=== PATIENT | male | born 1935 | race Caucasian/White ===

== ENCOUNTER 2017-01-22 01:06 | Emergency (ER) | payer MEDICARE ==
[~2017-01-22] VITALS: Ht 182.9 cm; Wt 74.8 kg
[~2017-01-22 01:06] MED LIST: ASPI81TA7 PO; NEUR600T PO; OMEP20CA3 PO; PERC5TAB6 PO; SENO8.6T10 PO; SIMV20TA2 PO; TYLE325T5 PO; VITA10002 PO; VITA400T2 PO
[2017-01-22] MEDS ORDERED: DOXY100C PO (01:31)
[2017-01-22] MEDS ORDERED: MORPHINE 2 MG/ML 1ML SYRINGE IV ONE ×2 (02:00→03:00)
[2017-01-22] MEDS ORDERED: NS 1,000 ML IV ONE (02:00)
[2017-01-22] MEDS ORDERED: ONDANSETRON 4MG/2ML VIAL (J2405) IV ONE (02:00)
[2017-01-22 02:19] LABS: BASO % 0.9 % (0.0-1.0); EOS # 0.2 K/mm3 (0.0-0.50); EOS % 3.3 % (0.0-3.0); LARGE UNSTAINED CELL # 0.1 K/mm3 (0.0-0.4); LARGE UNSTAINED CELL % 1.4 % (0.0-4.0); LYMPH # 1.4 K/mm3 (1.5-4.5); LYMPH % 22.6 % (24.0-44.0); MEAN CORPUSCULAR HEMOGLOBIN 29.3 pg (27.0-33.0); MEAN CORPUSCULAR HGB CONC 32.7 g/dl (32.0-36.5); MEAN CORPUSCULAR VOLUME 89.5 fl (80.0-96.0); MONO # 0.3 K/mm3 (0.0-0.8); MONO % 5.2 % (0.0-5.0); NEUTROPHILS # 3.8 K/mm3 (1.8-7.7); NEUTROPHILS % 66.7 % (36.0-66.0); PLATELET COUNT, AUTOMATED 196 k/mm3 (150-450); WHITE BLOOD COUNT 5.8 K/mm3 (4.0-10.0)
[2017-01-22 02:39] LABS: ALBUMIN 3.5 GM/DL (3.2-5.2); ALBUMIN/GLOBULIN RATIO 1.17 (1.00-1.93); ALKALINE PHOSPHATASE 67 U/L (45-117); ALT/SGPT 27 U/L (12-78); ANION GAP 8 MEQ/L (8-16); AST/SGOT 21 U/L (15-37); BILIRUBIN,DIRECT 0.1 MG/DL (0.0-0.2); BILIRUBIN,TOTAL 0.4 MG/DL (0.2-1.0); BLOOD UREA NITROGEN 16 MG/DL (7-18); CALCIUM LEVEL 8.7 MG/DL (8.8-10.2); CARBON DIOXIDE LEVEL 26 MEQ/L (21-32); CHLORIDE LEVEL 106 MEQ/L (98-107); CREATININE FOR GFR 1.18 MG/DL (0.70-1.30); GLOMERULAR FILTRATION RATE > 60.0 (>42); GLUCOSE, FASTING 100 MG/DL (83-110); SODIUM LEVEL 140 MEQ/L (136-145); TOTAL PROTEIN 6.5 GM/DL (6.4-8.2)
[2017-01-22] MEDS ORDERED: ISOVUE-370 76% 100ML VIAL (Q9967) As Ordered ONE (02:56)
--- NOTE | 2017-01-22 04:20 | REPUSA ---
CT of the abdomen and pelvis with contrast Clinical statement: Pain. Technique: Multiple axial CT images were obtained from the base of the lungs through the floor of the pelvis utilizing 5 mm axial slices after administration of nonionic intravenous contrast. Coronal an d sagittal reconstructions were also obtained. Comparison: 03/15/2011. Findings: Chest: The visualized lung bases are clear. Abdomen: The liver, spleen, pancreas, kidneys, gallbladder, and adrenal glands are unremarkable. The aorta demonstrates mild diffuse atherosclerosis but is otherwise within normal limits. There is no ev idence of abdominal lymphadenopathy or ascites. Pelvis: The bowel is unremarkable, with no obstructive or inflammatory changes. The appendix is nick l. The urinary bladder is within normal limits. The other pelvic structures appear grossly intact. Th ere is no evidence of pelvic lymphadenopathy or ascites. Bones: There are no suspicious osseous abnormalities seen. Impression: Unremarkable CT examination of the abdomen and pelvis. No focal abnormality to explain th e patient's pain.
[2017-01-22] MEDS ORDERED: MORPHINE 4 MG/ML 1ML SYRINGE IV PRN (04:45)
--- NOTE | 2017-01-22 07:00 | REPUSA ---
Clinical history: Pain. Findings: Real-time ultrasound imaging of the testicles and scrotum was performed. The right testicle measures 4.7 x 2.2 x 2.6 cm. The left testicle measures 5.3 x 2.4 x 3.3 cm. The testicles demonstrat e normal echo texture and echogenicity. Normal color Doppler flow and arterial waveforms are seen magdiel aterally. No fluid collections are seen. Impression: Unremarkable ultrasound examination of the testicles.
[2017-01-22] MEDS ORDERED: PERC5TAB6 PO ×2 (07:16→07:44)
[2017-01-22] MEDS ORDERED: OXYCODONE/APAP 5MG/325MG(BULK FOR ED) 1 TABLET PO ONE (07:30)
[2017-01-22 07:48] VITALS: BP 132/56
[2017-01-23] MEDS ORDERED: OMEP40CA2 PO (11:14)
[2017-01-23] MEDS ORDERED: lantanoprost OU (11:14)
== END 2017-01-22 07:50 | disposition home or self-care (01) ==
LOC: EDBD 01:06 → M ED 03:42
DX: R10.9 Unspecified abdominal pain (principal); N50.9 Disorder of male genital organs, unspecified; N40.0 Benign prostatic hyperplasia without lower urinary tract symptoms; Z79.82 Long term (current) use of aspirin; Z79.899 Other long term (current) drug therapy; E78.00 Pure hypercholesterolemia, unspecified; K21.9 Gastro-esophageal reflux disease without esophagitis; H40.9 Unspecified glaucoma; M54.9 Dorsalgia, unspecified
CPT/HCPCS: 36415; 74177; 76870; 80048; 80076; 81001; 83690; 85025; 96365; 96366; 96375; 96376; 99282; J2405; Q9967

== ENCOUNTER 2017-01-23 10:30 | Emergency (ER) | payer MEDICARE ==
[~2017-01-23] VITALS: Ht 185.4 cm; Wt 74.8 kg
[~2017-01-23 10:30] MED LIST changes: +DOXY100C PO
[2017-01-23] MEDS ORDERED: lantanoprost OU (11:14)
[2017-01-23] MEDS ORDERED: OMEP40CA2 PO (11:14)
[2017-01-23 13:44] LABS: MEAN CORPUSCULAR HEMOGLOBIN 29.7 pg (27.0-33.0); MEAN CORPUSCULAR VOLUME 90.1 fl (80.0-96.0); RED CELL DISTRIBUTION WIDTH 12.9 % (11.5-14.5); WHITE BLOOD COUNT 9.7 K/mm3 (4.0-10.0)
[2017-01-23 15:38] VITALS: BP 135/70
--- NOTE | 2017-01-24 10:17 | ECGEPIP ---
Stationary ECG Study [facility] - ED Test Date: 2017-01-23 Pat Name: ESTHER LEONARD Department: Room: - Gender: M Pastry Artist: yoly : 1935 Requested By: ROMAIN Hughes PA-C Order Number: [id number] Reading MD: Anthony Shine Measurements Intervals [place] Rate: 53 P: 40 ME: 219 QRS: 51 QRSD: 86 T: 59 QT: 425 QTc: 401 Interpretive Statements SINUS BRADYCARDIA WITH FIRST DEGREE AV BLOCK NSTTW ABNORMALITIES SIMILAR TO 08/30/15 Electronically Signed On 01-24-2017 10:16:31 EDT by Anthony Shine
== END 2017-01-23 15:39 | disposition home or self-care (01) ==
LOC: M ED 12:01
DX: M51.16 Intervertebral disc disorders with radiculopathy, lumbar region (principal); K22.6 Gastro-esophageal laceration-hemorrhage syndrome; E78.5 Hyperlipidemia, unspecified; K22.70 Barrett's esophagus without dysplasia; Z79.82 Long term (current) use of aspirin; Z79.899 Other long term (current) drug therapy

== ENCOUNTER 2017-02-03 09:38 | Outpatient (CLI) | payer MEDICARE ==
[~2017-02-03] VITALS: Ht 182.9 cm; Wt 76.2 kg
[~2017-02-03 09:38] MED LIST changes: +OMEP40CA2 PO; +lantanoprost OU
[2017-02-03] MEDS ORDERED: NS 1,000 ML IV SCH (10:30)
--- NOTE | 2017-02-03 10:57 | ROOR ---
Patient Name: Dylon West Procedure Date: 02/03/2017 10:40 AM Date of : 1935 Age: 81 Room: [facility] Gender: Male Note Status: Finalized Procedure: Upper GI endoscopy + Biopsies Indications: Follow-up of Magallon's esophagus Providers: Piyush Cavazos MD Referring MD: PRABHU MORALES MD Requesting Provider: Medicines: Monitored Anesthesia Care Complications: No immediate complications. Procedure: Pre-Anesthesia Assessment: - The heart rate, respiratory rate, oxygen saturations, blood pressure, adequacy of pulmonary ventilation, and response to care were monitored throughout the procedure. The Endoscope was introduced through the mouth, and advanced to the second part of duodenum. The upper GI endoscopy was accomplished without difficulty. The patient tolerated the procedure well. Findings: The Z-line was irregular and was found 40 cm from the incisors. Multiple biopsies were obtained with cold forceps for evaluation to rule out Magallon's Esophagus randomly at the gastroesophageal junction. A small hiatal hernia was present. No other significant abnormalities were identified in a careful examination of the stomach. The exam of the duodenum was otherwise normal. Impression: - Z-line irregular, 40 cm from the incisors. - Small hiatal hernia. - Multiple biopsies were obtained at the gastroesophageal junction. - The examination was otherwise normal. Recommendation: - Patient has a contact number available for emergencies. The signs and symptoms of potential delayed complications were discussed with the patient. Return to normal activities tomorrow. Written discharge instructions were provided to the patient. - High fiber diet. - Discharge patient to home. - Continue present medications. - Await pathology results. - Return to referring physician. - Check Portal Online for Path Results.([email or web address] - The findings and recommendations were discussed with the patient's family. Piyush Cavazos MD Piyush Cavazos MD 02/03/2017 10:57:28 AM This report has been signed electronically. Number of Addenda: 0 Note Initiated On: 02/03/2017 10:40 AM Estimated Blood Loss: Estimated blood loss: none.
[2017-02-03 11:15] VITALS: BP 143/64
[2017-02-03] MEDS ORDERED: PROPOFOL 200 MG/20 ML VIAL As Ordered ONE (11:30)
== END 2017-02-03 11:30 | disposition home or self-care (01) ==
LOC: M OPP 09:38
PROVIDERS: ATTEND Internal Medicine Gastroenterology
DX: K22.70 Barrett's esophagus without dysplasia (principal); K22.8 Other specified diseases of esophagus; K44.9 Diaphragmatic hernia without obstruction or gangrene; R01.1 Cardiac murmur, unspecified; E78.5 Hyperlipidemia, unspecified; R12 Heartburn; Z86.73 Personal history of transient ischemic attack (TIA), and cerebral infarction without residual deficits; M54.9 Dorsalgia, unspecified; J43.9 Emphysema, unspecified; K21.9 Gastro-esophageal reflux disease without esophagitis; Z86.12 Personal history of poliomyelitis; N40.1 Benign prostatic hyperplasia with lower urinary tract symptoms; Z87.440 Personal history of urinary (tract) infections; Z87.891 Personal history of nicotine dependence; Z79.82 Long term (current) use of aspirin; Z79.899 Other long term (current) drug therapy

== ENCOUNTER → 2017-03-22 | Day surgery (SDC) | payer MEDICARE ==
[~2017-03-22] VITALS: Ht 182.9 cm; Wt 73.9 kg
[~2017-03-22] MED LIST changes: +ACETAMINOPHEN 325 MG TAB PO PRN; +AcetaZOLAMIDE 500 MG ER CAP PO ONE; +BSS with VANC/TOB/EPI for EYE CASES IR ONE; +CEFUROXIME 1MG/0.1ML INTRACAMERAL INJ As Ordered ONE; +CYCLOPENTOLATE 2% OPHTH SOLN 2ML BTL OD ONE; +D5W/0.2% SODIUM CHLORIDE 1,000 ML IV SCH; +HEALON DUET (HEALON 10MG/ML 0.55ML & HEALON ENDOCOAT 30MG/ML 0.85ML) As Ordered ONE; +KETOROLAC 0.5% OPHTH SOLN XX ONE; +LIDOCAINE 1% SDV 5 ML VIAL As Ordered ONE; +LIDOCAINE 4% INJ 5 ML AMP OU ONE; +MIDAZOLAM INJ 2 MG/2 ML VIAL (J2250) As Ordered ONE; +OFLOXACIN 0.3 % (OCUFLOX) OPTH SOL 5ML OD ONE; +PHENYLEPHRINE 2.5% OPHTH SOL 2ML OD ONE; +POVIDONE-IODINE 5% OPHTH PREP SOL 30ML As Ordered ONE; +PROPARACAINE 0.5% OPHTH SOL 15ML XX PRN; +SIMV40TA2 PO; +TRIMETHOBENZAMIDE 300 MG CAP PO PRN; +TROPICAMIDE 1% OPHTH SOLN 2ML OD ONE; +fentaNYL 100 MCG/2 ML INJECTION (J3010) As Ordered ONE
[2017-03-22 09:00] VITALS: BP 140/76
--- NOTE | 2017-03-22 19:46 | RO ---
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 OPERATIVE PROCEDURE: Phacoemulsification with intraocular lens implantation, Hoya power 14 diopters, and endocyclophotocoagulation right eye and placement of Malyugin ring right eye, and placement of the IStent right eye. SURGEON: Raymon Queen MD SOCIAL SECURITY ASSESSOR: None. ANESTHESIA: Local IV standby. COMPLICATIONS: None. DESCRIPTION OF PROCEDURE: The patient was brought to the operating room and laid in supine position. The eye was prepped and draped in a sterile fashion for ophthalmic surgery, following which a lid speculum was placed. A sideport incision was made and EndoCoat was injected into the anterior chamber. Temporal clear corneal incision was made with a 2.5 mm keratome followed by capsulorhexis. Hydrodissection was then done followed by phacoemulsification in the divide and conquer method within the capsular bag. Excess cortical material was then aspirated using the irrigation and aspiration cannula. Healon was then placed in the capsular bag, intraocular lens inserted without any complications. Healon was then placed in the ciliary sulcus and with the help of the video screen and EndoProbe, endocyclophotocoagulation was done over 280 degrees at 0.25 mV and good results were noted by shrinkage of the ciliary processes on the video screen. Healon was then placed into the anterior chamber with the help of corneal lens and the patient's head turned away from the surgeon under high magnification. The trabecular meshwork was observed and the inferonasal quadrant and the iStent was placed with good blood reflex noted. Excess viscoelastic was then aspirated and wound hydrated. Lid speculum removed and patient returned to the recovery room in stable condition.
== END | disposition home or self-care (01) ==
LOC: M SDC 06:35
PROVIDERS: ATTEND Ophthalmology
DX: H26.9 Unspecified cataract (principal); H57.03 Miosis; H40.9 Unspecified glaucoma; K22.70 Barrett's esophagus without dysplasia; K21.9 Gastro-esophageal reflux disease without esophagitis; E78.2 Mixed hyperlipidemia; M21.379 Foot drop, unspecified foot; B91 Sequelae of poliomyelitis; J44.9 Chronic obstructive pulmonary disease, unspecified; N40.1 Benign prostatic hyperplasia with lower urinary tract symptoms; Z79.899 Other long term (current) drug therapy; Z79.82 Long term (current) use of aspirin; Z86.73 Personal history of transient ischemic attack (TIA), and cerebral infarction without residual deficits; Z99.89 Dependence on other enabling machines and devices; Z87.891 Personal history of nicotine dependence
CPT/HCPCS: 66711; 66984; C1783; J2250; J3010; V2632

== ENCOUNTER → 2017-03-29 | Day surgery (SDC) | payer MEDICARE ==
[~2017-03-29] VITALS: Ht 182.9 cm; Wt 74.0 kg
[~2017-03-29] MED LIST changes: -CYCLOPENTOLATE 2% OPHTH SOLN 2ML BTL OD ONE; +CYCLOPENTOLATE 2% OPHTH SOLN 2ML BTL XX ONE; -D5W/0.2% SODIUM CHLORIDE 1,000 ML IV SCH; +KETOROLAC 0.5% OPHTH SOLN OS ONE; -KETOROLAC 0.5% OPHTH SOLN XX ONE; +LR 1,000 ML IV ONE; +MOXIFLOXACIN IN BSS 0.25MG/0.25ML INTRACAMERAL INJ (OR EYE ONLY)(J2280) As Ordered ONE; -OFLOXACIN 0.3 % (OCUFLOX) OPTH SOL 5ML OD ONE; +OFLOXACIN 0.3 % (OCUFLOX) OPTH SOL 5ML XX ONE; -PHENYLEPHRINE 2.5% OPHTH SOL 2ML OD ONE; +PHENYLEPHRINE 2.5% OPHTH SOL 2ML XX ONE; +PHENYLEPHRINE HCL 10 % OPHTH. SOL 5ML As Ordered ONE; +PHENYLEPHRINE HCL 10 % OPHTH. SOL 5ML XX ONE; +PROPARACAINE 0.5% OPHTH SOL 15ML OS PRN; -PROPARACAINE 0.5% OPHTH SOL 15ML XX PRN; +TRIAMCINOLONE PRES FR 40 MG/ML 1ML(TRIESENCE)(OR EYE ONLY)(J3300 PER 1MG) As Ordered ONE; -TROPICAMIDE 1% OPHTH SOLN 2ML OD ONE; +TROPICAMIDE 1% OPHTH SOLN 2ML XX ONE
[2017-03-29] MEDS: MOXIFLOXACIN IN BSS 0.25MG/0.25ML INTRACAMERAL INJ (OR EYE ONLY)(J2280) As Ordered ONE ×2 (09:17→09:19)
[2017-03-29 09:50] VITALS: BP 145/72
--- NOTE | 2017-03-29 10:19 | RO ---
DATE OF PROCEDURE: 03/29/2017 PREPROCEDURE DIAGNOSES: Cataract left eye, glaucoma left eye, and myosis left eye. POSTPROCEDURE DIAGNOSES: Cataract left eye, glaucoma left eye, and myosis left eye. PROCEDURES: Phacoemulsification with intraocular lens implantation, intraocular lens with Hoya, model 250, power 16.5 Diopter, along with placement of the Malyugin ring 7 mm, also endocytophotocoagulation left eye along with placement of the iStent left eye. SURGEON: Raymon Queen MD MUSTANGER: ANESTHESIA: PROCEDURE IN DETAIL: The patient was brought to the operating room, laid in supine position. The left eye was prepped and draped in a sterile fashion for opthalmic surgery and the lid speculum was placed. A sideport incision was made and EndoCoat was injected into the anterior chamber. A temporal clear corneal incision was then made with a 2.5 mm keratome, followed by injection of the Malyugin ring to dilate the pupil. Following this, capsulorrhexis was carried out, followed by hydrodissection and rotation of the nucleus within the capsular bag. Phacoemulsification was then done in a divide and conquer method within the capsular bag, followed by aspiration of the cortical material. Healon was then placed in the capsular bag and IOL inserted. Healon was then placed in the ciliary sulcus and with the help off the video probe, ciliary processes were visualized on the video screen and endocytophotocoagulation was done at 0.25 mV for 280 degrees with good results noted. Healon was then placed into the anterior chamber. The patient's head was turned away from the surgeon and the microscope was turned toward the surgeon and under high mag, with the help of the Gonio prism, iStent was inserted into the infranasal quadrant. During the insertion process, the patient was very combative and so the first iStent was not placed and a second iStent was then used and was placed successfully. The first stent was then removed as it was loose. Excess Viscoelastic was aspirated, wound hydrated, lid speculum removed and patient returned to the recovery room in stable condition. Also, the Malyugin ring was removed after placement of the intraocular lens.
== END | disposition home or self-care (01) ==
LOC: M SDC 06:53
PROVIDERS: ATTEND Ophthalmology
DX: H26.9 Unspecified cataract (principal); H40.812 Glaucoma with increased episcleral venous pressure, left eye; H57.03 Miosis; E78.5 Hyperlipidemia, unspecified; K22.70 Barrett's esophagus without dysplasia; J44.9 Chronic obstructive pulmonary disease, unspecified; N40.0 Benign prostatic hyperplasia without lower urinary tract symptoms; Z86.73 Personal history of transient ischemic attack (TIA), and cerebral infarction without residual deficits; Z79.82 Long term (current) use of aspirin; Z79.899 Other long term (current) drug therapy; Z87.891 Personal history of nicotine dependence
CPT/HCPCS: 66183; 66711; 66982; C1783; J2250; J2280; J3010; V2632

== ENCOUNTER 2017-12-24 13:19 | Emergency (ER) | payer OTHER, MEDICARE ==
[2017-12-24 14:35] LABS: HEMATOCRIT 37.9 % (42.0-52.0); HEMOGLOBIN 12.8 g/dl (14.0-18.0); LYMPH % 23.5 % (24.0-44.0); MEAN CORPUSCULAR HEMOGLOBIN 29.5 pg (27.0-33.0); MEAN CORPUSCULAR HGB CONC 33.8 g/dl (32.0-36.5); MEAN CORPUSCULAR VOLUME 87.3 fl (80.0-96.0); MONO % 9.2 % (0.0-5.0); NEUTROPHILS % 62.1 % (36.0-66.0); PLATELET COUNT, AUTOMATED 188 10^3/uL (150-450); RED BLOOD COUNT 4.34 10^6/uL (4.30-6.10); RED CELL DISTRIBUTION WIDTH 12.8 % (11.5-14.5); WHITE BLOOD COUNT 6.3 10^3/uL (4.0-10.0)
[2017-12-24 14:36] LABS: BASO # 0.1 10^3/uL (0.0-0.2); EOS # 0.3 10^3/uL (0.0-0.50); IMMATURE GRANULOCYTE % 0.2 % (0-3.0); LYMPH # 1.5 10^3/uL (1.5-4.5); MONO # 0.6 10^3/uL (0.0-0.8); NEUTROPHILS # 3.9 10^3/uL (1.8-7.7)
[2017-12-24] MEDS ORDERED: ISOVUE-370 76% 100ML VIAL (Q9967) As Ordered (15:02)
[2017-12-24 15:04] LABS: ALBUMIN 3.7 GM/DL (3.2-5.2); ALBUMIN/GLOBULIN RATIO 1.16 (1.00-1.93); ALKALINE PHOSPHATASE 65 U/L (45-117); ALT/SGPT 30 U/L (12-78); ANION GAP 7 MEQ/L (8-16); AST/SGOT 28 U/L (7-37); BILIRUBIN,DIRECT < 0.1 MG/DL (0.0-0.2); BILIRUBIN,TOTAL 0.3 MG/DL (0.2-1.0); BLOOD UREA NITROGEN 17 MG/DL (7-18); C REACTIVE PROTEIN QUANTITATIV < 0.30 MG/DL (0.00-0.30); CALCIUM LEVEL 8.2 MG/DL (8.8-10.2); CARBON DIOXIDE LEVEL 25 MEQ/L (21-32); CHLORIDE LEVEL 109 MEQ/L (98-107); GLOMERULAR FILTRATION RATE > 60.0 (>35); GLUCOSE, FASTING 105 MG/DL (70-100); LIPASE 95 U/L (73-393); MAGNESIUM LEVEL 2.1 MG/DL (1.8-2.4); POTASSIUM SERUM 4.1 MEQ/L (3.5-5.1); SODIUM LEVEL 141 MEQ/L (136-145); TOTAL PROTEIN 6.9 GM/DL (6.4-8.2)
[2017-12-24] MEDS ORDERED: MORPHINE 2 MG/ML 1ML SYRINGE (J2270) As Ordered (15:38)
[2017-12-24] MEDS: MORPHINE 2 MG/ML 1ML SYRINGE (J2270) IV (15:47)
[2017-12-24 16:25] LABS: KETONE, URINE AUTO RFX NEGATIVE (NEGATIVE); MUCUS, URINE RFX SMALL (NEGATIVE); NITRITE, URINE AUTO RFX NEGATIVE (NEGATIVE); RBC, URINE AUTO RFX 1 /HPF (0-3); SPECIFIC GRAVITY UR AUTO RFX 1.021 (1.002-1.035); SQUAM EPITHELIAL CELL UR AURFX 0 /HPF (0-6); WBC, URINE AUTO RFX 6 /HPF (0-3)
[2017-12-24 16:46] LABS: LEUKOCYTE ESTERASE UR AUTO RFX TRACE (NEGATIVE)
[2017-12-24] MEDS ORDERED: LevoFLOXacin IV 500 MG in APPROPRIATE DILUENT 1 EA IV (17:30)
[2017-12-24] MEDS: KETOROLAC 30 MG/ML VIAL (J1885) IV (17:35)
[2017-12-24] MEDS: CEFTRIAXONE SOD 1 GM in APPROPRIATE DILUENT 1 EA IV (17:44)
== END 2017-12-24 18:30 | disposition home or self-care (01) ==
LOC: M ED 13:19
DX: R10.30 Lower abdominal pain, unspecified (principal); Z87.891 Personal history of nicotine dependence; Z79.82 Long term (current) use of aspirin; Z79.899 Other long term (current) drug therapy; Z88.1 Allergy status to other antibiotic agents
CPT/HCPCS: Q9967

== ENCOUNTER → 2018-01-08 | Outpatient (REF) | payer OTHER ==
[2018-01-08 14:14] LABS: APPEARANCE, URINE CLEAR (CLEAR); BACTERIA, URINE AUTO NEGATIVE (NEGATIVE); BILIRUBIN, URINE AUTO NEGATIVE (NEGATIVE); BLOOD, URINE BLOOD NEGATIVE (NEGATIVE); COLOR, URINE YELLOW (YELLOW); GLUCOSE, URINE (UA) AUTO NEGATIVE (NEGATIVE); KETONE, URINE AUTO NEGATIVE (NEGATIVE); LEUKOCYTE ESTERASE, URINE AUTO 2+ (NEGATIVE); NITRITE, URINE AUTO NEGATIVE (NEGATIVE); PROTEIN, URINE AUTO NEGATIVE (NEGATIVE); RBC, URINE AUTO 2 /HPF (0-3); SQUAMOUS EPITHELIAL CELL UR AU 2 /HPF (0-6); TRANSITIONAL EPITHELIAL AUTO 2 /HPF; UROBILINOGEN, URINE AUTO 0.2 mg/dL (0.0-2.0); WBC, URINE AUTO 24 /HPF (0-3)
== END ==
LOC: M SMT 13:04
DX: N39.0 Urinary tract infection, site not specified (principal)
CPT/HCPCS: 81001

== ENCOUNTER 2018-08-15 09:36 | Inpatient (IN) | payer OTHER ==
[2018-08-15] MEDS: ONDANSETRON 4MG/2ML VIAL (J2405) IV (10:27)
[2018-08-15 10:59] LABS: BASO % 0.4 % (0.0-1.0); HEMATOCRIT 35.6 % (42.0-52.0); HEMOGLOBIN 11.9 g/dl (13.5-17.5); IMMATURE GRANULOCYTE % 0.8 % (0-3.0); LYMPH # 0.5 10^3/uL (1.5-4.5); LYMPH % 4.5 % (24.0-44.0); MEAN CORPUSCULAR HEMOGLOBIN 29.5 pg (27.0-33.0); MEAN CORPUSCULAR HGB CONC 33.4 g/dl (32.0-36.5); MEAN CORPUSCULAR VOLUME 88.1 fl (80.0-96.0); MONO # 0.6 10^3/uL (0.0-0.8); NEUTROPHILS # 9.5 10^3/uL (1.8-7.7); NEUTROPHILS % 88.3 % (36.0-66.0); PLATELET COUNT, AUTOMATED 170 10^3/uL (150-450); RED BLOOD COUNT 4.04 10^6/uL (4.30-6.10); RED CELL DISTRIBUTION WIDTH 13.2 % (11.5-14.5); WHITE BLOOD COUNT 10.8 10^3/uL (4.0-10.0)
[2018-08-15 11:20] LABS: INFLUENZA A AMPLIFICATION NEGATIVE (NEGATIVE); INFLUENZA B AMPLIFICATION NEGATIVE (NEGATIVE)
[2018-08-15 11:30] LABS: ALBUMIN 3.3 GM/DL (3.2-5.2); ALBUMIN/GLOBULIN RATIO 0.89 (1.00-1.93); ALKALINE PHOSPHATASE 119 U/L (45-117); ALT/SGPT 131 U/L (12-78); ANION GAP 6 MEQ/L (8-16); AST/SGOT 121 U/L (7-37); BILIRUBIN,DIRECT 0.3 MG/DL (0.0-0.2); BILIRUBIN,TOTAL 0.6 MG/DL (0.2-1.0); BLOOD UREA NITROGEN 15 MG/DL (7-18); CALCIUM LEVEL 8.4 MG/DL (8.8-10.2); CARBON DIOXIDE LEVEL 25 MEQ/L (21-32); CHLORIDE LEVEL 106 MEQ/L (98-107); CK-MB VALUE MASS < 1.0 NG/ML (<3.6); CPK CREATINE PHOSPHOKINASE 90 U/L (39-308); CREATININE FOR GFR 1.07 MG/DL (0.70-1.30); GLOMERULAR FILTRATION RATE > 60.0 (>35); GLUCOSE, FASTING 119 MG/DL (70-100); MB/CK RELATIVE INDEX 1.11 (< OR =4); POTASSIUM SERUM 4.1 MEQ/L (3.5-5.1); SODIUM LEVEL 137 MEQ/L (136-145); TROPONIN I < 0.02 NG/ML (< 0.10)
[2018-08-15] MEDS: NS 500 ML IV (12:17)
[2018-08-15 13:35] LABS: KETONE, URINE AUTO RFX TRACE mg/dL (NEGATIVE); MUCUS, URINE RFX SMALL (NEGATIVE); NITRITE, URINE AUTO RFX NEGATIVE (NEGATIVE); RBC, URINE AUTO RFX 0 /HPF (0-3); SPECIFIC GRAVITY UR AUTO RFX 1.024 (1.002-1.035); SQUAM EPITHELIAL CELL UR AURFX 1 /HPF (0-6)
[2018-08-15 13:55] LABS: LEUKOCYTE ESTERASE UR AUTO RFX 3+ (NEGATIVE); WBC, URINE AUTO RFX 101 /HPF (0-3)
[2018-08-15] MEDS: ACETAMINOPHEN TAB 650MG DOSE (2X325MG) PO (15:54)
[2018-08-15] MEDS: PIPERACILLIN/TAZOBACTAM SOD 4.5 GM in D5W MINI-BAG PLUS 50 ML IV (15:54)
[2018-08-15] MEDS: NS 1,000 ML IV ×2 (16:44→20:13)
[2018-08-15] MEDS ORDERED: PERCOCET 5MG/325MG TAB PO (16:45)
[2018-08-15] MEDS ORDERED: ONDANSETRON 4MG/2ML VIAL (J2405) IV (16:45)
[2018-08-15] MEDS ORDERED: ONDANSETRON 4 MG TAB (S0181) PO (16:45)
[2018-08-15] MEDS: IBUPROFEN 600 MG TAB PO (17:04)
[2018-08-15] MEDS ORDERED: FLUBLOK(EGG FREE)(QUAD)INFLUENZA VACC 0.5ML SYRINGE (90682)18YRS&OLDER IM (17:30)
[2018-08-15] MEDS: SODIUM CHLORIDE 0.9% 1000ML IV (18:06)
[2018-08-15 18:33] LABS: LACTIC ACID SEPSIS PROTOCOL 1.2 MMOL/L (0.4-2.0)
[2018-08-15] MEDS: VITAMIN D 1,000 INTERNATIONAL UNITS TABLET PO (18:56)
[2018-08-15] MEDS: OMEPRAZOLE 20 MG CAP PO (18:56)
[2018-08-15] MEDS: ASPIRIN 81 MG ENTERIC TAB PO (18:56)
[2018-08-15] MEDS: ENOXAPARIN 40 MG/0.4 ML SYRINGE (J1650) SC (20:24)
[2018-08-15] MEDS: LATANOPROST 0.005% OPHTH SOLN 2.5 ML OU (20:24)
[2018-08-15] MEDS: GABAPENTIN 300 MG CAP PO (20:24)
[2018-08-15] MEDS: PIPERACILLIN/TAZOBACTAM SOD 3.375 GM in D5W MINI-BAG PLUS 50 ML IV (22:13)
[2018-08-16] MEDS: NS 1,000 ML IV ×3 (00:27→10:22)
[2018-08-16] MEDS: HYDROCORTISONE 100 MG/2 ML VIAL (J1720) IV (01:52)
[2018-08-16] MEDS: PIPERACILLIN/TAZOBACTAM SOD 3.375 GM in D5W MINI-BAG PLUS 50 ML IV ×4 (04:00→22:20)
[2018-08-16 04:43] LABS: BASO % 0.3 % (0.0-1.0); EOS % 0.1 % (0.0-3.0); HEMATOCRIT 30.8 % (42.0-52.0); IMMATURE GRANULOCYTE % 0.3 % (0-3.0); LYMPH % 8.3 % (24.0-44.0); MEAN CORPUSCULAR HEMOGLOBIN 29.9 pg (27.0-33.0); MEAN CORPUSCULAR HGB CONC 32.5 g/dl (32.0-36.5); MEAN CORPUSCULAR VOLUME 92.2 fl (80.0-96.0); MONO # 0.6 10^3/uL (0.0-0.8); MONO % 4.8 % (0.0-5.0); NEUTROPHILS # 10.1 10^3/uL (1.8-7.7); NEUTROPHILS % 86.2 % (36.0-66.0); PLATELET COUNT, AUTOMATED 131 10^3/uL (150-450); RED BLOOD COUNT 3.34 10^6/uL (4.30-6.10); RED CELL DISTRIBUTION WIDTH 13.7 % (11.5-14.5); WHITE BLOOD COUNT 11.7 10^3/uL (4.0-10.0)
[2018-08-16 05:13] LABS: ALBUMIN 2.3 GM/DL (3.2-5.2); ALKALINE PHOSPHATASE 85 U/L (45-117); ALT/SGPT 93 U/L (12-78); ANION GAP 5 MEQ/L (8-16); AST/SGOT 76 U/L (7-37); BILIRUBIN,TOTAL 0.4 MG/DL (0.2-1.0); BLOOD UREA NITROGEN 16 MG/DL (7-18); CALCIUM LEVEL 6.8 MG/DL (8.8-10.2); CARBON DIOXIDE LEVEL 22 MEQ/L (21-32); CHLORIDE LEVEL 116 MEQ/L (98-107); GLOMERULAR FILTRATION RATE > 60.0 (>35); GLUCOSE, FASTING 120 MG/DL (70-100); POTASSIUM SERUM 4.5 MEQ/L (3.5-5.1); SODIUM LEVEL 143 MEQ/L (136-145); TOTAL PROTEIN 5.4 GM/DL (6.4-8.2)
[2018-08-16 05:14] LABS: ALBUMIN/GLOBULIN RATIO 0.74 (1.00-1.93); MAGNESIUM LEVEL 1.5 MG/DL (1.8-2.4)
[2018-08-16] MEDS: ACETAMINOPHEN TAB 650MG DOSE (2X325MG) PO ×2 (05:36→20:01)
[2018-08-16] MEDS: MAG SULF 1GM/100ML (MAG RUN) 1 GM in APPROPRIATE DILUENT 1 EA IV (05:36)
[2018-08-16] MEDS: CYANOCOBALAMIN 500 MCG TAB PO (08:16)
[2018-08-16] MEDS: GABAPENTIN 300 MG CAP PO ×3 (08:16→20:01)
[2018-08-16] MEDS: VITAMIN D 1,000 INTERNATIONAL UNITS TABLET PO (08:17)
[2018-08-16] MEDS: ASPIRIN 81 MG ENTERIC TAB PO (08:17)
[2018-08-16] MEDS: OMEPRAZOLE 20 MG CAP PO (08:17)
[2018-08-16] MEDS: LATANOPROST 0.005% OPHTH SOLN 2.5 ML OU (20:01)
[2018-08-16] MEDS: ENOXAPARIN 40 MG/0.4 ML SYRINGE (J1650) SC (20:01)
[2018-08-17] MEDS: PIPERACILLIN/TAZOBACTAM SOD 3.375 GM in D5W MINI-BAG PLUS 50 ML IV ×4 (04:23→21:34)
[2018-08-17 05:21] LABS: BASO # 0.1 10^3/uL (0.0-0.2); BASO % 0.5 % (0.0-1.0); EOS # 0.1 10^3/uL (0.0-0.50); EOS % 0.8 % (0.0-3.0); HEMOGLOBIN 9.6 g/dl (13.5-17.5); IMMATURE GRANULOCYTE % 0.4 % (0-3.0); LYMPH # 2.1 10^3/uL (1.5-4.5); LYMPH % 22.3 % (24.0-44.0); MEAN CORPUSCULAR HEMOGLOBIN 29.4 pg (27.0-33.0); MEAN CORPUSCULAR HGB CONC 33.1 g/dl (32.0-36.5); MONO # 0.6 10^3/uL (0.0-0.8); MONO % 6.8 % (0.0-5.0); NEUTROPHILS # 6.4 10^3/uL (1.8-7.7); NEUTROPHILS % 69.2 % (36.0-66.0); PLATELET COUNT, AUTOMATED 146 10^3/uL (150-450); RED BLOOD COUNT 3.26 10^6/uL (4.30-6.10); RED CELL DISTRIBUTION WIDTH 13.6 % (11.5-14.5); WHITE BLOOD COUNT 9.3 10^3/uL (4.0-10.0)
[2018-08-17 05:58] LABS: ALBUMIN 2.1 GM/DL (3.2-5.2); ALBUMIN/GLOBULIN RATIO 0.68 (1.00-1.93); ALKALINE PHOSPHATASE 86 U/L (45-117); ALT/SGPT 96 U/L (12-78); ANION GAP 9 MEQ/L (8-16); AST/SGOT 82 U/L (7-37); BILIRUBIN,TOTAL 0.3 MG/DL (0.2-1.0); BLOOD UREA NITROGEN 13 MG/DL (7-18); CARBON DIOXIDE LEVEL 21 MEQ/L (21-32); CHLORIDE LEVEL 114 MEQ/L (98-107); CREATININE FOR GFR 0.96 MG/DL (0.70-1.30); GLOMERULAR FILTRATION RATE > 60.0 (>35); GLUCOSE, FASTING 98 MG/DL (70-100); POTASSIUM SERUM 3.4 MEQ/L (3.5-5.1); SODIUM LEVEL 144 MEQ/L (136-145); TOTAL PROTEIN 5.2 GM/DL (6.4-8.2)
[2018-08-17] MEDS: POTASSIUM CHLORIDE 10 MEQ SR TABLET PO (09:01)
[2018-08-17] MEDS: OMEPRAZOLE 20 MG CAP PO (09:01)
[2018-08-17] MEDS: GABAPENTIN 300 MG CAP PO ×3 (09:01→21:34)
[2018-08-17] MEDS: ASPIRIN 81 MG ENTERIC TAB PO (09:02)
[2018-08-17] MEDS: CYANOCOBALAMIN 500 MCG TAB PO (09:02)
[2018-08-17] MEDS: VITAMIN D 1,000 INTERNATIONAL UNITS TABLET PO (09:02)
[2018-08-17 10:45] LABS: HEPATITIS B SURFACE ANTIGEN NEGATIVE (NEGATIVE)
[2018-08-17 11:05] LABS: HEPATITIS C VIRUS ABY INDEX < 0.0 INDEX (<0.8)
[2018-08-17 11:07] LABS: HEPATITIS B CORE ANTIBODY IGM NEGATIVE (NEGATIVE)
[2018-08-17 11:59] LABS: HEPATITIS A ANTIBODY IGM POSITIVE (NEGATIVE)
[2018-08-17] MEDS: ENOXAPARIN 40 MG/0.4 ML SYRINGE (J1650) SC (21:34)
[2018-08-17] MEDS: LATANOPROST 0.005% OPHTH SOLN 2.5 ML OU (21:34)
[2018-08-18] MEDS: diphenhydrAMINE 25 MG CAP PO (01:35)
[2018-08-18] MEDS: PIPERACILLIN/TAZOBACTAM SOD 3.375 GM in D5W MINI-BAG PLUS 50 ML IV ×3 (03:49→16:28)
[2018-08-18 06:32] LABS: BASO # 0.1 10^3/uL (0.0-0.2); BASO % 0.9 % (0.0-1.0); EOS # 0.2 10^3/uL (0.0-0.50); EOS % 2.7 % (0.0-3.0); HEMATOCRIT 30.7 % (42.0-52.0); HEMOGLOBIN 10.2 g/dl (13.5-17.5); IMMATURE GRANULOCYTE % 0.4 % (0-3.0); LYMPH # 2.2 10^3/uL (1.5-4.5); LYMPH % 27.4 % (24.0-44.0); MEAN CORPUSCULAR HEMOGLOBIN 29.1 pg (27.0-33.0); MEAN CORPUSCULAR HGB CONC 33.2 g/dl (32.0-36.5); MEAN CORPUSCULAR VOLUME 87.7 fl (80.0-96.0); MONO # 0.7 10^3/uL (0.0-0.8); MONO % 8.3 % (0.0-5.0); NEUTROPHILS # 4.7 10^3/uL (1.8-7.7); NEUTROPHILS % 60.3 % (36.0-66.0); PLATELET COUNT, AUTOMATED 172 10^3/uL (150-450); RED CELL DISTRIBUTION WIDTH 13.9 % (11.5-14.5); WHITE BLOOD COUNT 7.9 10^3/uL (4.0-10.0)
[2018-08-18 07:01] LABS: ALBUMIN 2.2 GM/DL (3.2-5.2); ALBUMIN/GLOBULIN RATIO 0.71 (1.00-1.93); ALKALINE PHOSPHATASE 80 U/L (45-117); ALT/SGPT 85 U/L (12-78); ANION GAP 7 MEQ/L (8-16); AST/SGOT 55 U/L (7-37); BILIRUBIN,TOTAL 0.3 MG/DL (0.2-1.0); BLOOD UREA NITROGEN 7 MG/DL (7-18); CARBON DIOXIDE LEVEL 24 MEQ/L (21-32); CHLORIDE LEVEL 115 MEQ/L (98-107); CREATININE FOR GFR 0.92 MG/DL (0.70-1.30); GLOMERULAR FILTRATION RATE > 60.0 (>35); GLUCOSE, FASTING 92 MG/DL (70-100); MAGNESIUM LEVEL 2.2 MG/DL (1.8-2.4); POTASSIUM SERUM 3.6 MEQ/L (3.5-5.1); SODIUM LEVEL 146 MEQ/L (136-145); TOTAL PROTEIN 5.3 GM/DL (6.4-8.2)
[2018-08-18] MEDS: ASPIRIN 81 MG ENTERIC TAB PO (09:38)
[2018-08-18] MEDS: GABAPENTIN 300 MG CAP PO ×2 (09:38→16:27)
[2018-08-18] MEDS: CYANOCOBALAMIN 500 MCG TAB PO (09:38)
[2018-08-18] MEDS: OMEPRAZOLE 20 MG CAP PO (09:38)
[2018-08-18] MEDS: VITAMIN D 1,000 INTERNATIONAL UNITS TABLET PO (09:38)
== END 2018-08-18 18:13 | disposition home or self-care (01) | DRG 698 ==
LOC: M MSPAV 08-17 13:47 → M ED 09:36 → M ED INP 16:44 → M ICU 18:20
DX: T83.518A Infection and inflammatory reaction due to other urinary catheter, initial encounter (principal); A41.9 Sepsis, unspecified organism; N39.0 Urinary tract infection, site not specified; B15.9 Hepatitis A without hepatic coma; K21.9 Gastro-esophageal reflux disease without esophagitis; E55.9 Vitamin D deficiency, unspecified; E53.8 Deficiency of other specified B group vitamins; G47.00 Insomnia, unspecified; G14 Postpolio syndrome; M21.379 Foot drop, unspecified foot; Z79.82 Long term (current) use of aspirin; Z79.899 Other long term (current) drug therapy; Z88.8 Allergy status to other drugs, medicaments and biological substances; G62.9 Polyneuropathy, unspecified; Y84.6 Urinary catheterization as the cause of abnormal reaction of the patient, or of later complication, without mention of misadventure at the time of the procedure

== ENCOUNTER → 2018-09-05 | Outpatient (REF) | payer OTHER | LOC: M LAB REF 09:36 | DX: R19.7 Diarrhea, unspecified (principal) | CPT/HCPCS: 87507 ==

== ENCOUNTER 2019-08-26 11:35 | Day surgery (SDC) | payer MEDICARE ==
[~2019-08-26] VITALS: Ht 182.9 cm; Wt 76.7 kg
[~2019-08-26 11:35] MED LIST changes: -ACETAMINOPHEN 325 MG TAB PO PRN; +AMOX875T PO; +ASPI1TAB15 PO; -ASPI81TA7 PO; -AcetaZOLAMIDE 500 MG ER CAP PO ONE; -BSS with VANC/TOB/EPI for EYE CASES IR ONE; +CEFD1CAP8 PO; -CEFUROXIME 1MG/0.1ML INTRACAMERAL INJ As Ordered ONE; +CYAN100049 PO; +CYAN500T8 PO; -CYCLOPENTOLATE 2% OPHTH SOLN 2ML BTL XX ONE; +D3400CAP PO; +DIPH25CA32 PO; +GABA-843 PO; +GUAI100L31 PO; -HEALON DUET (HEALON 10MG/ML 0.55ML & HEALON ENDOCOAT 30MG/ML 0.85ML) As Ordered ONE; +KETO10TAB PO; -KETOROLAC 0.5% OPHTH SOLN OS ONE; +LATA0.0013 OU; +LEVA1TAB2 PO; -LIDOCAINE 1% SDV 5 ML VIAL As Ordered ONE; -LIDOCAINE 4% INJ 5 ML AMP OU ONE; -LR 1,000 ML IV ONE; -MIDAZOLAM INJ 2 MG/2 ML VIAL (J2250) As Ordered ONE; -MOXIFLOXACIN IN BSS 0.25MG/0.25ML INTRACAMERAL INJ (OR EYE ONLY)(J2280) As Ordered ONE; +MULTTAB79 PO; +NS 1,000 ML IV ONE; -OFLOXACIN 0.3 % (OCUFLOX) OPTH SOL 5ML XX ONE; +OMEP-358 PO; -OMEP20CA3 PO; +OMEP20CA4 PO; -OMEP40CA2 PO; +OMEP40CA97 PO; +PERC5TAB12 PO; -PERC5TAB6 PO; -PHENYLEPHRINE 2.5% OPHTH SOL 2ML XX ONE; -PHENYLEPHRINE HCL 10 % OPHTH. SOL 5ML As Ordered ONE; -PHENYLEPHRINE HCL 10 % OPHTH. SOL 5ML XX ONE; -POVIDONE-IODINE 5% OPHTH PREP SOL 30ML As Ordered ONE; +PRAV40TA2 PO; +PRED20TA PO; -PROPARACAINE 0.5% OPHTH SOL 15ML OS PRN; -TRIAMCINOLONE PRES FR 40 MG/ML 1ML(TRIESENCE)(OR EYE ONLY)(J3300 PER 1MG) As Ordered ONE; -TRIMETHOBENZAMIDE 300 MG CAP PO PRN; -TROPICAMIDE 1% OPHTH SOLN 2ML XX ONE; +VITA-144 PO; -VITA10002 PO; -fentaNYL 100 MCG/2 ML INJECTION (J3010) As Ordered ONE
[2019-08-26] MEDS ORDERED: [UNRECOGNIZED DRUG - OTHER] PO (13:09)
[2019-08-26] MEDS ORDERED: LIDOCAINE 2% INJ 100 MG/5 ML SDV (FOR ANES.) As Ordered ONE (13:18)
[2019-08-26] MEDS ORDERED: PROPOFOL 200 MG/20 ML VIAL As Ordered ONE (13:18)
[2019-08-26] MEDS ORDERED: fentaNYL 100 MCG/2 ML INJECTION (J3010) As Ordered ONE (13:45)
--- NOTE | 2019-08-26 14:02 | ROOR ---
Patient Name: Dylon West Procedure Date: 08/26/2019 1:39 PM Date of : 1935 Age: 83 Room: [facility] Gender: Male Note Status: Finalized Procedure: Upper Endoscopy + Biopsies Indications: Follow-up of Magallon's esophagus Providers: Piyush Cavazos MD Referring MD: PRABHU MORALES MD Requesting Provider: Medicines: Monitored Anesthesia Care Complications: No immediate complications. Procedure: Pre-Anesthesia Assessment: - The heart rate, respiratory rate, oxygen saturations, blood pressure, adequacy of pulmonary ventilation, and response to care were monitored throughout the procedure. The Endoscope was introduced through the mouth, and advanced to the second part of duodenum. The upper GI endoscopy was accomplished without difficulty. The patient tolerated the procedure well. Findings: The Z-line was irregular and was found 40 cm from the incisors. Multiple biopsies were obtained with cold forceps for evaluation to rule out Magallon's Esophagus randomly at the gastroesophageal junction. A small hiatal hernia was present. No other significant abnormalities were identified in a careful examination of the stomach. The exam of the duodenum was otherwise normal. Impression: - Z-line irregular, 40 cm from the incisors. - Small hiatal hernia. - Multiple biopsies were obtained at the gastroesophageal junction. - The examination was otherwise normal. Recommendation: - Patient has a contact number available for emergencies. The signs and symptoms of potential delayed complications were discussed with the patient. Return to normal activities tomorrow. Written discharge instructions were provided to the patient. - Resume previous diet. - Discharge patient to home. - Continue present medications. - Await pathology results. - Telephone GI clinic for pathology results in 1 week. - Return to referring physician. - The findings and recommendations were discussed with the patient's family. Piyush Cavazos MD Piyush Cavazos MD 08/26/2019 2:02:08 PM Electronically signed by Piyush Cavazos MD Number of Addenda: 0 Note Initiated On: 08/26/2019 1:39 PM Estimated Blood Loss: Estimated blood loss: none.
[2019-08-26 14:15] VITALS: BP 157/79
== END 2019-08-26 14:36 | disposition home or self-care (01) ==
LOC: M OPP 11:35
PROVIDERS: ATTEND Internal Medicine Gastroenterology
DX: K22.8 Other specified diseases of esophagus (principal); K44.9 Diaphragmatic hernia without obstruction or gangrene; K22.70 Barrett's esophagus without dysplasia; Z79.82 Long term (current) use of aspirin; Z79.899 Other long term (current) drug therapy; Z88.8 Allergy status to other drugs, medicaments and biological substances; Z87.891 Personal history of nicotine dependence
CPT/HCPCS: 43239; 88305; J3010

== ENCOUNTER → 2020-05-04 | Outpatient (CLI) | payer MEDICARE ==
[~2020-05-04] MED LIST changes: +ASPI-546 PO; -ASPI1TAB15 PO; -NS 1,000 ML IV ONE; +OMEP1CAP73 PO; -OMEP20CA4 PO; -SIMV20TA2 PO; +SIMV20TA22 PO; -SIMV40TA2 PO; +SIMV40TA20 PO; +[UNRECOGNIZED DRUG - OTHER] PO
== END ==
LOC: M LABSMTC 13:41
PROVIDERS: ATTEND Family Medicine
DX: Z11.59 Encounter for screening for other viral diseases (principal)
CPT/HCPCS: C9803; U0003

== ENCOUNTER → 2020-08-17 | Outpatient (CLI) | payer MEDICARE ==
--- NOTE | 2020-08-17 16:21 | REP ---
INDICATION: DYSPHAGIA, OROPHARYNGEAL PHASE COMPARISON: None TECHNIQUE: The procedure was performed by Lauren Chua [facility], under the direct supervision of Dr. Ascencio. The procedure was performed with Bella Loco from speech pathology present. 5 ml aliquots of thin, pudding, mixed fruit with a thin consistency base, soft food, hard food and pill consistency barium was administered. FINDINGS: Flash penetration was visualized with thin consistency barium. The detailed report of this examination will be provided by speech pathology. IMPRESSION: 2.8 minutes of fluoroscopy time was utilized for this procedure. Some fluoroscopic images are performed with last image hold technology. These images require no additional radiation. <Electronically signed by Lyle Ascencio > 08/17/20 [id number]
== END ==
LOC: M ST 13:26
PROVIDERS: ATTEND Internal Medicine Gastroenterology
DX: R13.12 Dysphagia, oropharyngeal phase (principal)

== ENCOUNTER → 2021-03-04 | Outpatient (CLI) | payer MEDICARE ==
[~2021-03-04] MED LIST changes: +ALBU8.5H; +CYAN500T14 PO; -CYAN500T8 PO; +GABA-282 PO; -GABA-843 PO
== END ==
LOC: M LABSMTC 12:14
PROVIDERS: ATTEND Anesthesiology
DX: Z01.812 Encounter for preprocedural laboratory examination (principal); Z11.52 Encounter for screening for COVID-19

== ENCOUNTER → 2021-03-09 | Outpatient (CLI) | payer MEDICARE ==
[~2021-03-09] MED LIST changes: +PROHANCE 279.3MG/ML 15ML VIAL As Ordered ONE
[2021-03-09 13:00] VITALS: BP 152/57
--- NOTE | 2021-03-09 13:00 | REPVR ---
PROCEDURE INFORMATION: Exam: MR Cervical Spine Without Contrast Exam date and time: 03/09/2021 11:53 AM Age: 85 years old Clinical indication: Pain; Cervicalgia; Additional info: Cervical spondylosis w/ cervicalagia TECHNIQUE: Imaging protocol: Multiplanar magnetic resonance images of the cervical spine without contrast. COMPARISON: None available. FINDINGS: Vertebrae: There is 3 mm of grade 1 retrolisthesis of C3 with respect to C4, C5 with respect David 6 and C6 with respect to C7. Normal vertebral body alignment is otherwise preserved. Vertebral body heights are within normal limits. Spinal cord: Normal signal. No cord compression. C2-C3: There is a shallow disc osteophyte complex asymmetric to the right. There is mild facet hypertrophy. The spinal canal and neural foramina are patent. C3-C4: There is a diffuse disc osteophyte complex/uncovering related to listhesis. There is moderate facet hypertrophy. There is severe right and moderate left neural foraminal narrowing. C4-C5: There is a diffuse disc osteophyte complex. There is moderate facet hypertrophy. There is mild right neural foraminal narrowing. There is mild canal stenosis. C5-C6: There is a diffuse disc osteophyte complex/uncovering related to listhesis asymmetric to the right. There is moderate facet hypertrophy. There is severe bilateral neural foraminal narrowing, right greater than left. There is right lateral recess stenosis. C6-C7: There is a diffuse disc osteophyte complex. There is moderate right and mild left facet hypertrophy. There is severe right and moderate to severe left neural foraminal narrowing. There is moderate canal stenosis. C7-T1: There is a shallow disc osteophyte complex/uncovering related to listhesis. There is moderate facet hypertrophy. The spinal canal and neural foramina are patent. Soft tissues: Unremarkable. Vertebral arteries: Expected flow voids in the vertebral arteries. IMPRESSION: Degenerative disc disease and spondylosis. Changes contribute to multilevel moderate to severe neural foraminal narrowing. Electronically signed by: Natividad Vaughn On 03/09/2021 13:00:27 PM
== END ==
LOC: M RAD 10:09
PROVIDERS: ATTEND Psychiatry & Neurology Neurology
DX: M43.02 Spondylolysis, cervical region (principal); M54.2 Cervicalgia; R20.2 Paresthesia of skin

== ENCOUNTER → 2021-11-29 | Outpatient (CLI) | payer MEDICARE ==
[~2021-11-29] MED LIST changes: -CEFD1CAP8 PO; +CEFD300C41 PO; -DOXY100C PO; +DOXY100C3 PO; +OMEP40CA4 PO; -OMEP40CA97 PO; -PROHANCE 279.3MG/ML 15ML VIAL As Ordered ONE
== END ==
LOC: M LABSMTC 10:13
PROVIDERS: ATTEND Family Medicine
DX: Z20.822 Contact with and (suspected) exposure to COVID-19 (principal)
CPT/HCPCS: C9803; U0003

== ENCOUNTER 2021-12-03 14:20 | Outpatient (CLI) | payer MEDICARE ==
[~2021-12-03 14:20] MED LIST changes: +ALBUTEROL 90 MCG/ACT 8GM HFA INHALER INH PRN; +ALBUTEROL SULFATE 2.5 MG/0.5 ML INH NEB SOLN INH PRN; +EPINEPHrine INJ 1 MG/ML 1ML AMP IM PRN; +NS 1,000 ML IV SCH; +diphenhydrAMINE 50MG/ML VIAL (J1200) IV PRN; +methylPREDNISolone 125MG 2ML VIAL IV PRN
[2021-12-03 15:16] VITALS: BP 139/68
[2021-12-03 15:46] VITALS: BP 122/58
[2021-12-03] MEDS ORDERED: SOTROVIMAB 500 MG in NS 100 ML IV ONE (16:00)
[2021-12-03 16:46] VITALS: BP 149/70
== END 2021-12-03 16:46 | disposition home or self-care (01) ==
LOC: M OPCLI4PR 14:20
PROVIDERS: ATTEND Internal Medicine
DX: U07.1 COVID-19 (principal); Z88.1 Allergy status to other antibiotic agents

== ENCOUNTER → 2021-12-21 | Outpatient (CLI) | payer MEDICARE ==
[~2021-12-21] MED LIST changes: -ALBUTEROL 90 MCG/ACT 8GM HFA INHALER INH PRN; -ALBUTEROL SULFATE 2.5 MG/0.5 ML INH NEB SOLN INH PRN; -EPINEPHrine INJ 1 MG/ML 1ML AMP IM PRN; -NS 1,000 ML IV SCH; -diphenhydrAMINE 50MG/ML VIAL (J1200) IV PRN; -methylPREDNISolone 125MG 2ML VIAL IV PRN
== END ==
LOC: M WUC 13:37
PROVIDERS: ATTEND Internal Medicine
DX: U07.1 COVID-19 (principal)

== ENCOUNTER 2022-01-18 15:00 | Emergency (ER) | payer MEDICARE ==
[~2022-01-18] VITALS: Ht 182.9 cm; Wt 77.3 kg
[2022-01-18] MEDS ORDERED: ALBUTEROL 90 MCG/ACT 8GM HFA INHALER INH ONE (19:15)
[2022-01-18 19:31] LABS: BASO # 0.1 10^3/uL (0.0-0.2); BASO % 0.8 % (0.0-1.0); EOS # 0.2 10^3/uL (0.0-0.5); EOS % 3.6 % (0.0-3.0); HEMATOCRIT 34.5 % (42.0-52.0); HEMOGLOBIN 11.5 g/dl (13.5-17.5); LYMPH # 1.9 10^3/uL (1.5-5.0); MEAN CORPUSCULAR HEMOGLOBIN 29.7 pg (27.0-33.0); MEAN CORPUSCULAR HGB CONC 33.3 g/dl (32.0-36.5); MEAN CORPUSCULAR VOLUME 89.1 fl (80.0-96.0); MONO # 0.5 10^3/uL (0.0-0.8); MONO % 7.9 % (2.0-8.0); NEUTROPHILS # 3.4 10^3/uL (1.5-8.5); NEUTROPHILS % 55.5 % (36.0-66.0); PLATELET COUNT, AUTOMATED 198 10^3/uL (150-450); RED BLOOD COUNT 3.87 10^6/uL (4.30-6.10); WHITE BLOOD COUNT 6.1 10^3/uL (4.0-10.0)
[2022-01-18] MEDS ORDERED: ISOVUE-370 76% 100ML VIAL As Ordered ONE (20:00)
[2022-01-18 20:55] VITALS: BP 123/75
== END 2022-01-18 20:57 | disposition home or self-care (01) ==
LOC: M ED 15:00
DX: R07.81 Pleurodynia (principal); E78.5 Hyperlipidemia, unspecified; K21.9 Gastro-esophageal reflux disease without esophagitis; E53.8 Deficiency of other specified B group vitamins; Z86.16 Personal history of COVID-19; Z87.81 Personal history of (healed) traumatic fracture; Z79.82 Long term (current) use of aspirin; Z79.899 Other long term (current) drug therapy; Z88.1 Allergy status to other antibiotic agents

== ENCOUNTER → 2022-02-09 | Outpatient (REF) | payer MEDICARE ==
[2022-02-09 13:42] LABS: AMORPHOUS SEDIMENT SMALL (NEGATIVE); APPEARANCE, URINE HAZY (CLEAR); BACTERIA, URINE AUTO 1+ (NEGATIVE); BILIRUBIN, URINE AUTO NEGATIVE (NEGATIVE); BLOOD, URINE BLOOD 1+ (NEGATIVE); COLOR, URINE YELLOW (YELLOW); GLUCOSE, URINE (UA) AUTO NEGATIVE (NEGATIVE); KETONE, URINE AUTO NEGATIVE (NEGATIVE); LEUKOCYTE ESTERASE, URINE AUTO 1+ (NEGATIVE); MUCUS, URINE MODERATE (NEGATIVE); NITRITE, URINE AUTO NEGATIVE (NEGATIVE); PROTEIN, URINE AUTO NEGATIVE (NEGATIVE); RBC, URINE AUTO 4 /HPF (0-3); SPECIFIC GRAVITY URINE AUTO 1.018 (1.002-1.035); SQUAMOUS EPITHELIAL CELL UR AU 0 /HPF (0-6); UROBILINOGEN, URINE AUTO 0.2 mg/dL (0.0-2.0); WBC, URINE AUTO 44 /HPF (0-3)
== END ==
LOC: M SMT 12:55
PROVIDERS: ATTEND Physician Assistant
DX: N31.2 Flaccid neuropathic bladder, not elsewhere classified (principal); Z79.899 Other long term (current) drug therapy

== ENCOUNTER → 2022-03-04 | Outpatient (CLI) | payer MEDICARE | LOC: M WUC 12:12 | PROVIDERS: ATTEND Internal Medicine | DX: M25.551 Pain in right hip (principal); M16.11 Unilateral primary osteoarthritis, right hip ==

== ENCOUNTER → 2022-04-08 | Outpatient (CLI) | payer MEDICARE ==
[~2022-04-08] MED LIST changes: +ISOVUE-300 61% 50ML VIAL As Ordered ONE; +LIDOCAINE 1% MDV 20ML VIAL As Ordered ONE; +TRIAMCINOLONE ACETONIDE SUSP 40 MG/ML VIAL (J3301) As Ordered ONE
== END ==
LOC: M RADPRO 13:09
PROVIDERS: ATTEND Physician Assistant
DX: M16.11 Unilateral primary osteoarthritis, right hip (principal)
CPT/HCPCS: 20610; 76000; J3301; Q9967

== ENCOUNTER → 2022-11-29 | Outpatient (CLI) | payer MEDICARE ==
[~2022-11-29] MED LIST changes: +DIPH-435 PO; -DIPH25CA32 PO; -ISOVUE-300 61% 50ML VIAL As Ordered ONE; -LIDOCAINE 1% MDV 20ML VIAL As Ordered ONE; -TRIAMCINOLONE ACETONIDE SUSP 40 MG/ML VIAL (J3301) As Ordered ONE
== END ==
LOC: M WUC 09:47
PROVIDERS: ATTEND Internal Medicine
DX: M54.31 Sciatica, right side (principal); M85.88 Other specified disorders of bone density and structure, other site; M51.36 Other intervertebral disc degeneration, lumbar region

== ENCOUNTER → 2024-02-28 | Outpatient (CLI) | payer MEDICARE ==
[~2024-02-28] MED LIST changes: +CEFD1CAP9 PO; -CEFD300C41 PO
[2024-02-28 12:31] LABS: BASO # 0.1 10^3/uL (0.0-0.2); EOS # 0.2 10^3/uL (0.0-0.5); EOS % 2.1 % (0.0-3.0); HEMATOCRIT 37.2 % (42.0-52.0); HEMOGLOBIN 12.4 g/dl (13.5-17.5); LYMPH # 1.7 10^3/uL (1.5-5.0); LYMPH % 23.9 % (24.0-44.0); MEAN CORPUSCULAR HEMOGLOBIN 29.6 pg (27.0-33.0); MEAN CORPUSCULAR HGB CONC 33.3 g/dl (32.0-36.5); MEAN CORPUSCULAR VOLUME 88.8 fl (80.0-96.0); MONO # 0.5 10^3/uL (0.0-0.8); MONO % 7.2 % (2.0-8.0); NEUTROPHILS # 4.6 10^3/uL (1.5-8.5); NEUTROPHILS % 65.4 % (36.0-66.0); PLATELET COUNT, AUTOMATED 131 10^3/uL (150-450); RED BLOOD COUNT 4.19 10^6/uL (4.30-6.10)
[2024-02-28 13:04] LABS: BILIRUBIN,TOTAL 0.4 MG/DL (0.3-1.2); CALCIUM LEVEL 8.8 MG/DL (8.3-10.6); CREATININE FOR GFR 1.32 MG/DL (0.70-1.30); GLOMERULAR FILTRATION RATE 54.7 (>35); POTASSIUM SERUM 4.6 MMOL/L (3.5-5.1); TOTAL PROTEIN 6.1 G/DL (5.7-8.2)
== END ==
LOC: M WUC 10:28
PROVIDERS: ATTEND Internal Medicine
DX: A09 Infectious gastroenteritis and colitis, unspecified (principal)

== ENCOUNTER → 2025-03-11 | Outpatient (CLI) | payer MEDICARE ==
[~2025-03-11] MED LIST changes: +GABA-1172 PO; -GABA-282 PO
== END ==
LOC: M WUC 15:45
PROVIDERS: ATTEND Internal Medicine
DX: M79.671 Pain in right foot (principal); M77.31 Calcaneal spur, right foot

== ENCOUNTER → 2025-07-03 | Outpatient (CLI) | payer MEDICARE ==
[~2025-07-03] MED LIST changes: -PRAV40TA2 PO; +PRAV40TA85 PO
== END ==
LOC: M RAD 14:52
PROVIDERS: ATTEND Physician Assistant
DX: L84 Corns and callosities (principal); I70.201 Unspecified atherosclerosis of native arteries of extremities, right leg

== ENCOUNTER → 2025-08-13 | Outpatient (POV) | payer MEDICARE ==
[~2025-08-13] VITALS: Ht 182.9 cm; Wt 68.2 kg
[~2025-08-13] MED LIST changes: +GABA-1490 PO
[2025-08-13 09:08] VITALS: BP 167/96; O2SAT 99
== END ==
LOC: M IRPOV 08:34
PROVIDERS: ATTEND Registered Nurse School
DX: I70.235 Atherosclerosis of native arteries of right leg with ulceration of other part of foot (principal); L97.519 Non-pressure chronic ulcer of other part of right foot with unspecified severity; Z87.891 Personal history of nicotine dependence; Z88.1 Allergy status to other antibiotic agents; Z79.82 Long term (current) use of aspirin; Z79.899 Other long term (current) drug therapy

== ENCOUNTER → 2025-09-29 | Outpatient (CLI) | payer MEDICARE ==
[~2025-09-29] MED LIST changes: +CLOP75TA2 PO; +PANT40TA29 PO
[2025-09-29 11:25] LABS: PLATELET COUNT, AUTOMATED 167 10^3/uL (150-450)
[2025-09-29 11:51] LABS: ALT/SGPT 12.0 U/L (7.0-40); AST/SGOT 23.0 U/L (<34); CALCIUM LEVEL 9.1 MG/DL (8.3-10.6); CARBON DIOXIDE LEVEL 26.0 MMOL/L (20-31); CHLORIDE LEVEL 106.0 MMOL/L (98-107); CREATININE FOR GFR 1.45 MG/DL (0.70-1.30); GLOMERULAR FILTRATION RATE 46.6 (>35); POTASSIUM SERUM 4.7 MMOL/L (3.5-5.1); SODIUM LEVEL 140.0 MMOL/L (136-145)
[2025-09-29 11:56] LABS: INR 0.93
== END ==
LOC: M LAB 10:09
PROVIDERS: ATTEND Radiology Diagnostic Radiology
DX: I73.9 Peripheral vascular disease, unspecified (principal); Z79.899 Other long term (current) drug therapy

== ENCOUNTER → 2025-09-30 | Outpatient (CLI) | payer MEDICARE ==
[~2025-09-30] MED LIST changes: +ACETAMINOPHEN 325 MG TAB PO PRN; +MIDAZOLAM INJ 2 MG/2 ML VIAL IV PRN; +NS (Normal Saline) 0.9% 1,000 ML IV SCH; +ONDANSETRON 4MG/2ML VIAL IV PRN; +PERCOCET 5MG/325MG TAB PO PRN
[2025-09-30 07:35] VITALS: TEMP 97.7
[2025-09-30] MEDS: NS (Normal Saline) 0.9% 1,000 ML IV SCH (08:37)
[2025-09-30] MEDS: HEPARIN 1,000 UNITS/ML 10 ML VIAL (FOR RADIOLOGY & DIALYSIS ONLY) IV PRN (08:52)
[2025-09-30] MEDS: LIDOCAINE 1% MDV 20 ML VIAL SC SCH (10:28)
[2025-09-30] MEDS: ISOVUE-300 61% 100 ML VIAL IV SCH (10:29)
[2025-09-30 12:46] VITALS: BP 122/57; O2SAT 100
[2025-09-30] MEDS: CLOPIDOGREL 75 MG TAB PO ONE (13:17)
== END ==
LOC: M IRPRO 07:17
PROVIDERS: ATTEND Radiology Diagnostic Radiology
DX: I70.201 Unspecified atherosclerosis of native arteries of extremities, right leg (principal); R09.89 Other specified symptoms and signs involving the circulatory and respiratory systems
CPT/HCPCS: 37227; 37229; 37234; 75630; 93975; C1724; C1769; C1874; C1886; C1887; C1894; C2623; Q9967

== ENCOUNTER → 2025-10-13 | Outpatient (POV) | payer MEDICARE ==
[~2025-10-13] MED LIST changes: -ACETAMINOPHEN 325 MG TAB PO PRN; -MIDAZOLAM INJ 2 MG/2 ML VIAL IV PRN; -NS (Normal Saline) 0.9% 1,000 ML IV SCH; -ONDANSETRON 4MG/2ML VIAL IV PRN; -PERCOCET 5MG/325MG TAB PO PRN
== END ==
LOC: M IRPOV 13:00
PROVIDERS: ATTEND Registered Nurse School
DX: Z48.812 Encounter for surgical aftercare following surgery on the circulatory system (principal); I73.9 Peripheral vascular disease, unspecified; Z79.82 Long term (current) use of aspirin; Z79.899 Other long term (current) drug therapy; Z87.891 Personal history of nicotine dependence; Z88.1 Allergy status to other antibiotic agents; Z95.828 Presence of other vascular implants and grafts